=== PATIENT | female | born 1975 | race Caucasian/White ===

== ENCOUNTER 2025-06-16 21:35 | Emergency (ER) | payer BC, MEDICAID ==
[~2025-06-16] VITALS: Ht 160 cm; Wt 92.0 kg
[~2025-06-16 21:35] MED LIST: IBUP-1984 PO; NAPR-706 PO; SUMA25TA35 PO
[2025-06-16 21:57] VITALS: TEMP 97.6
--- NOTE | 2025-06-16 23:02 | Physician Documentation ---
History of Present Illness ~ Chief Complaint: Laceration Stated Complaint: FINGER LAC Time Seen by MD: 22:52 OK to notify your PCP?: Yes Source: patient Mode of Arrival: POV Exam Limitations: no limitations HPI Ms. Ash is a 49 y/o female who presents to the ED with c/o a laceration to the index finger of her left hand. She states that she accidentally cut her finger on the foil container at [employer] earlier today. Unsure of when her last Tetanus shot was. She is without additional injury. Movement makes the pain worse but she is able to fully move her finger. Medication Reconciliation Allergies: Coded Allergies: No Known Allergies (Unverified , 06/16/25) Scheduled Ibuprofen* (Motrin*), 400 MG PO Q8H, (Reported) Ibuprofen* (Motrin*), 400 MG PO PRN, (Reported) Naproxen* (Naproxen*), 250 MG PO Q 12 PRN, (Reported) Sumatriptan Succinate* (Imitrex Tab*), 50 MG PO PRN, (Reported) Past Medical History Past Medical History: Migraine Review of Systems All Other Systems at this time: Reviewed and Negative Constitutional: Reports: no symptoms reported Eyes: Reports: no symptoms reported ENT: Reports: no symptoms reported Respiratory: Reports: no symptoms reported Cardiovascular: Reports: no symptoms reported Gastrointestinal: Reports: no symptoms reported Genitourinary: Reports: no symptoms reported Female Genitalia: Reports: no reported symptoms Musculoskeletal: Reports: no symptoms reported Integumentary: Reports: laceration(s) Hematologic/Lymphatic: Reports: no symptoms reported Endocrine: Reports: no symptoms reported Psychiatric: Reports: no symptoms reported Physical Exam Vital Signs: RN Vital Signs have been reviewed: Yes, Temperature: 97.6, Source: Temporal, Heart Rate: 94, Respiratory Rate: 15, BP: 161/89, Pulse Oximetry: 99, Weight: 92.000 General Appearance: alert, WD/WN, no apparent distress EENT: PERRL/EOMI Cardiovascular: regular rate, rhythm Respiratory: lungs clear Chest: no accessory muscle use Gastrointestinal: normal palpation Back: normal inspection Extremities 1 cm laceration to the palmar surface of her left index finger. Hemostasis maintained. Able to fully ROM finger. Neurologic: oriented x4 Lymphatic: normal inspection Psychiatric: normal mood/affect Procedures Laceration/Wound Repair Laceration : Length (cm): 1 Anesthesia: Lidocaine Prep: cholorprep, irrigated by nurse Undermining: none Foreign Body: not identified Repaired: skin Wound Repaired With: sutures Suture Size/Type: 3-0 Number of Superficial Sutures: 5 Layer Closure?: No Dressing Applied: simple Tolerated Procedure Well?: yes, no complications Progress Results/Orders Results/Orders Completed Orders - BRANDON NICOLAS MD Tetanus/Pertuss/Diph Acell/Pf (Boostrix (06/16/25 22:55) Lidocaine 1% 30ml Vial (Xylocaine 1% Via (06/16/25 23:02) Medications Received in ER Medications (Trade) Dose Ordered Sig/Maxine Route PRN Reason Start Time Stop Time Status Last Admin Dose Admin (Boostrix vaccine syringe) 0.5 ml ONCE ONCE IMVAC 06/16/25 22:55 06/16/25 23:00 DC 06/16/25 23:16 0.5 ML (Xylocaine 1% vial) ONCE STAT SQ 06/16/25 23:02 06/16/25 23:03 DC 06/16/25 23:08 30 ML Vital Signs 06/16/25 06/16/25 21:57 23:17 Temp 97.6 Pulse 94 89 Resp 15 16 B/P (MAP) 161/89 157/99 (118) Pulse Ox 99 98 O2 Flow Rate 0 Medical Decision Making Differential Dx:Considerations: Include: Abrasion, Avulsion, Laceration, Fracture, Retained foreign body Additional Comments While here in the ED, she remained hemodynamically normal with ABC's intact and in NAD. She is afebrile and nontoxic. Neurovascularly intact. Updated Tetanus status here in the ED tonight. Laceration repaired without difficulty (see procedure note for additional details if needed). She will be discharged home with outpatient follow-up for suture removal in 7-10 days. Given follow-up and return instructions. She voiced understanding and agreement with d/c instructions. . Departure Disposition: HOME / SELF CARE / HOMELESS Impression: Primary Impression: Laceration Condition: Improved Discharge Instructions: Laceration Care, Adult, [id number] Referrals: NO PRIMARY CARE PROVIDER (PCP) Education Educated: Patient Educated regarding: diagnosis, treatment Signature Scribe Signature: N/A Attestation: N/A BRANDON NICOLAS MD Jun 16, 2025 23:02
[2025-06-16] MEDS: LIDOcaine 1% 30ml preserv. free vial SQ STA (23:08)
[2025-06-16] MEDS: TETanus/Pertussis (Acell)/Diphther VAC/PF (Tdap-Adult) 0.5ml syringe IMVAC ONE (23:16)
[2025-06-17 00:17] VITALS: BP 139/79; PULSE 83; RESP 17; O2SAT 96
== END 2025-06-17 00:23 | disposition home or self-care (01) ==
LOC: ER 21:36
DX: S61.211A Laceration without foreign body of left index finger without damage to nail, initial encounter (principal); G43.909 Migraine, unspecified, not intractable, without status migrainosus; Z79.899 Other long term (current) drug therapy; W26.8XXA Contact with other sharp object(s), not elsewhere classified, initial encounter; Y93.89 Activity, other specified; Y92.89 Other specified places as the place of occurrence of the external cause; Y99.8 Other external cause status
CPT/HCPCS: 12001; 90471; 90715; 99283; J2003